=== PATIENT | female | born 1985 ===

== ENCOUNTER 2021-09-01 18:00 | Outpatient (CLI) | payer OTHER | END 2021-09-01 18:01 | disposition home or self-care (01) | LOC: SLEEPLAB 18:00 | PROVIDERS: ATTEND Family Medicine | DX: G47.9 Sleep disorder, unspecified (principal); R53.83 Other fatigue; R06.83 Snoring; G47.00 Insomnia, unspecified | CPT/HCPCS: 95806 ==